=== PATIENT | male | born 1960 ===

== ENCOUNTER 2024-10-28 04:00 | Emergency (ER) | payer OTHER, MEDICAID ==
[~2024-10-28] VITALS: Ht 172.7 cm; Wt 81.8 kg
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
[2024-10-28] MEDS ORDERED: ACET500T58 PO (04:19)
[2024-10-28] MEDS ORDERED: CYCL-837 PO (04:19)
[2024-10-28 04:48] VITALS: BP 196/97; TEMP 97.9
[2024-10-28] MEDS: ONDANSETRON ODT 4 MG TAB PO ONE (04:52)
--- NOTE | 2024-10-28 04:52 | DVH ---
INDICATION: lumbar back pain COMPARISON: None TECHNIQUE: Frontal and lateral views of the lumbar spine were obtained. FINDINGS: The lumbar vertebral alignment is normal. The intervertebral disc spaces are well-maintained. No significant facet arthropathy is noted. No acute fracture, vertebral compression deformity or aggressive osseous lesions. Facet arthropathy at L4-L5 and L5-S1. The paravertebral soft tissues are grossly unremarkable. IMPRESSION: 1. No acute fracture. 2. Facet arthropathy at L4-L5 and L5-S1.
[2024-10-28] MEDS: HYDROcodone-ACET 10/325MG TAB PO ONE (04:53)
[2024-10-28 04:55] VITALS: PULSE 66; RESP 20; O2SAT 97
== END 2024-10-28 05:39 | disposition home or self-care (01) ==
LOC: ER 04:00
DX: S39.012A Strain of muscle, fascia and tendon of lower back, initial encounter (principal); I10 Essential (primary) hypertension; E11.9 Type 2 diabetes mellitus without complications; Z90.5 Acquired absence of kidney; Z79.899 Other long term (current) drug therapy; V49.88XA Car occupant (driver) (passenger) injured in other specified transport accidents, initial encounter; Y93.I9 Activity, other involving external motion; Y92.488 Other paved roadways as the place of occurrence of the external cause; Y99.8 Other external cause status
CPT/HCPCS: 72100; 99283; Q0162